=== PATIENT | female | born 2000 | race Caucasian/White ===

== ENCOUNTER 2020-02-22 11:53 | Outpatient (REF) | payer OTHER, SELFPAY | END 2020-02-22 11:54 | disposition home or self-care (01) | LOC: HO.LAB 11:53 | PROVIDERS: Visit Provider Internal Medicine | DX: Z20.822 Contact with and (suspected) exposure to COVID-19 (principal) | CPT/HCPCS: 36415; C9803; U0003 ==

== ENCOUNTER 2020-03-20 16:51 | Outpatient (REF) | payer OTHER, SELFPAY | END 2020-03-20 16:52 | disposition home or self-care (01) | LOC: HO.LAB 16:51 | PROVIDERS: Visit Provider Internal Medicine | DX: Z20.822 Contact with and (suspected) exposure to COVID-19 (principal) | CPT/HCPCS: 36415; C9803; U0003; U0005 ==

== ENCOUNTER 2021-01-16 16:05 | Outpatient (REF) | payer OTHER, SELFPAY | END 2021-01-16 16:06 | disposition home or self-care (01) | LOC: HO.LAB 16:05 | PROVIDERS: Visit Provider Internal Medicine | DX: Z20.822 Contact with and (suspected) exposure to COVID-19 (principal) | CPT/HCPCS: C9803; U0003; U0005 ==

== ENCOUNTER 2021-03-26 18:09 | Emergency (ER) | payer OTHER, SELFPAY ==
--- NOTE | ~2021-03-26 | US_ITS ---
EXAMINATION: US OBSTETRICAL ULTRASOUND CLINICAL INFORMATION: Lower/suprapubic abdominal pain. COMPARISON: None. LMP: 02/14/2021. Gestational age by maternal dates is 5 weeks and 5 days. Estimated date of delivery by maternal dates is 11/21/2021. TECHNIQUE: Ultrasound of the maternal pelvis is performed using transabdominal and transvaginal transducers. Transvaginal imaging is performed due to inadequate visualization transabdominally. M-mode Doppler is also performed. FINDINGS: The uterus measures 8.3 x 4.1 x 5.4 cm. The endometrium measures up to 1.1 cm in thickness. There is an endometrial sac measuring 0.4 cm which likely represents a gestational sac given provided history and corresponds to a sonographic gestational age of 4 weeks and 6 days. No pole is identified at this moment. No subchorionic bleed. The cervical os is closed. The cervical length was not measured by the technologist. The right ovary was not identified. The left ovary measures 4.3 x 3.4 x 4.4 cm and demonstrates a 2.6 cm peripheral hyperemic corpus luteal cyst. There is a small amount of free fluid. US/US OB <= 14 weeks fetus IMPRESSION: There is a very small anechoic endometrial sac, likely representing a small gestational sac measuring 0.4 cm and corresponding to a sonographic age of 4 weeks and 6 days. No pole is identified at this time and there is significant discrepancy in between the calculated gestational age by sonogram versus the calculated gestational age by last menstrual period which is 5 weeks and 5 days. Recommend correlation with certainty of the dates of the last menstrual period, quantitative hCGs and if indicated INFORMATION RECEPTIONIST consult to ensure viability of the . Inseparable from the left ovary, there is a peripheral hyperemic lesion, likely a corpus luteal cyst and much less likely an ectopic as this is within the left ovary and not from it. As above, quantitative hCG and close monitoring is recommended. The right ovary was not visualized Small volume of free fluid is nonspecific.
[2021-03-26 18:42] VITALS: BP 116/70; PULSE 68; RESP 18; TEMP 37.1; O2SAT 98; BMI 32.8
--- NOTE | 2021-03-26 19:07 | PC.NURSE ---
PT AMB TO [facility] WITH STEADY GAIT. C/O LLQ PELVIC PAIN. + . NO BLEEDING OR DISCHARGE. NO N/V/D. CHANGING INTO [facility].
[2021-03-26 19:14] VITALS: BP 109/66; PULSE 64; RESP 16; TEMP 37.2; O2SAT 99
--- NOTE | 2021-03-26 19:47 | ED_ITS ---
HPI - General Adult General Chief complaint: General Medical Stated complaint: left sided abd pain newly Time Seen by Provider: 03/26/21 18:58 Source: patient Mode of arrival: ambulatory History of Present Illness HPI narrative: 20-year-old female LMP beginning of February, presenting to the ED complaining suprapubic > left abdominal pain since this morning. Admits found out she was 2 days ago. Denies nausea, vomiting, diarrhea/constipation, dysuria/hematuria, flank pain, vaginal bleeding, vaginal discharge Onset (ago): day(s) Related Data Allergies Allergy/AdvReac Type Severity Reaction Status Date / Time No Known Allergies Allergy Unverified 03/26/21 18:42 Review of Systems Review of Systems: Constitutional: No Fever, No Chills, No Fatigue, No Malaise ENT/Mouth: No Ear Pain, No Nasal Congestion, No sore throat, No Rhinorrhea, No Swallowing Difficulty Eyes: No Eye Pain, No Swelling, No Redness, No Discharge Cardiovascular: No Chest Pain, No SOB, No Palpitations Respiratory: No Cough, No Sputum, No Dyspnea Gastrointestinal: No Nausea, No Vomiting, No Diarrhea, No Constipation, + Abdominal pain Genitourinary: No irregular bleeding, No vaginal discharge, No Dysuria, No Urinary Frequency, No Hematuria, No Flank Pain, No Urinary Flow Changes Musculoskeletal: No joint pain, No Myalgias, No Joint Swelling Skin: No Skin Lesions, No rash Neuro: No Weakness, No Dizziness, No Headache Yes all other systems are reviewed and are negative [facility] Past Medical History Attestation statement: The following information was validated with the patient. Medical History No known health problems Social History Social History Advance Directives: No Advance Directives Information Provided: Yes Patient : Yes Physical Exam ED Vital Signs: Vital Signs - 24 hr 03/26/21 18:42 03/26/21 19:14 03/26/21 21:46 Temperature 98.8 F 98.9 F 99.0 F Pulse Rate 68 64 62 Respiratory Rate 18 16 16 Blood Pressure 116/70 109/66 122/74 Pulse Oximetry 98 99 100 BMI result Body Mass Index 32.8 Const General: cooperative, healthy appearing and no acute distress Orientation/consciousness: patient oriented x3 Limitations: no limitations HENMT Head: Yes normal to inspection Ears: hearing grossly normal bilaterally General nose exam: Normal external nose present Face and sinus: Yes normal facial exam Eyes General: appearance normal, both eyes and all related structures EOM: EOMs intact bilaterally Neck Neck: Yes normal visual inspection and Yes no meningeal signs Resp Effort & Inspection: normal respiratory effort and no respiratory distress Cardio Rate: regular rate Heart sounds: S1 normal heart sound present and S2 normal heart sound present GI Inspection: Yes normal to inspection Palpation (GI): Soft to palpation, Tenderness to palpation present (GI) suprapubicly (bilaterally), no guarding and not rigid General: Yes no CVA tenderness Back/Spine/Pelvis Back: no CVA tenderness Skin Rashes: no rashes Wounds: no wounds Neuro General: patient oriented x3, gait normal, tone normal and no meningeal signs Gait exam (Neuro): Normal gait present Extrem General: Yes normal to inspection Course Course Course Narrative: -2132-- no leukocytosis. AST/ALT mildly elevated. Labs otherwise unremarkable. Beta quant 158 -2223--UA negative. positive US OB <= 14 weeks fetus IMPRESSION: There is a very small anechoic endometrial sac, likely representing a small gestational sac measuring 0.4 cm and corresponding to a sonographic age of 4 weeks and 6 days. No pole is identified at this time and there is significant discrepancy in between the calculated gestational age by sonogram versus the calculated gestational age by last menstrual period which is 5 weeks and 5 days. ? Recommend correlation with certainty of the dates of the last menstrual period, quantitative hCGs and if indicated BORDER MEASURER AND CUTTER consult to ensure viability of the . ? Inseparable from the left ovary, there is a peripheral hyperemic lesion, likely a corpus luteal cyst and much less likely an ectopic as this is within the left ovary and not from it. As above, quantitative hCG and close monitoring is recommended. ? The right ovary was not visualized ? Small volume of free fluid is nonspecific. >> results discussed with patient including needed close follow-up with OBGYN and repeat hCG in 48 hours. Discussed with patient its possible this is an ectopic , discussed worrisome signs and symptoms/strict return precautions including increasing/worsening or persistent pain, vaginal bleeding or discharge, persistent nausea or vomiting/fever to return to the ED immediately, she verbalized understanding and feel safe for discharge home at this time Medical Decision Making MDM Narrative Medical decision making narrative: 20-year-old female LMP beginning of February, presenting to the ED complaining suprapubic > left abdominal pain since this morning. On exam vital signs stable, NAD/nontoxic, abdomen soft with suprapubic tenderness, no rebound or guarding, no CVAT. Concern for vs ectopic vs ovarian cyst vs ?UTI. Lower concern for appendicitis/diverticulitis or ovarian torsion Plan: Labs, UA, OB US, Re-evaluate Medical Records Medical records reviewed: Yes I reviewed the patient's medical records. Lab Data Lab results reviewed: Yes I reviewed the patient's lab results. Result diagrams: 03/26/21 20:13 03/26/21 20:13 Labs: Lab Results 03/26/21 03/26/21 03/26/21 Range/Units 19:41 19:41 20:13 WBC (4.8-10.8) X10*3/uL RBC (4.20-5.50) X10*6/uL Hgb (12.0-16.0) g/dl Hct (37.0-47.0) % MCV (80.0-98.0) fL MCH (27.0-33.0) pg MCHC (31.0-35.0) g/dl RDW (11.0-16.0) % Plt Count (160-400) X10*3/uL MPV (9.4-12.3) fL Immature Gran % (Auto) (0.0-0.4) % Neut % (Auto) (45-73) % Lymph % (Auto) (20-40) % [place] % (Auto) (2-11) % Eos % (Auto) (0-4) % Baso % (Auto) (0-2) % Lymph # (Auto) (1.2-4.9) X10*3/uL [place] # (Auto) (0.1-1.2) X10*3/uL Eos # (Auto) (0.0-0.4) X10*3/uL Baso # (Auto) (0.0-0.2) X10*3/uL Abs Immat Gran (auto) (0.00-0.03) X10*3/uL Absolute Neuts (auto) (2.0-8.3) x10*3/uL Absolute Nucleated RBC (0.0-0.012) X10*3/uL Nucleated RBC % (auto) (0.0-0.2) /100WBC Sodium 136 (135-145) mmol/L Potassium 4.3 (3.3-5.1) mmol/L Chloride 106 (96-108) mmol/L Carbon Dioxide 21 L (22-29) mmol/L Anion Gap 13 (12-20) BUN 10 (9-16) mg/dL Creatinine 0.66 (0.5-1.4) mg/dL Estim Creat Clear Calc 137.2 Estimated GFR > 60 Random Glucose 79 (60-115) mg/dL Calcium 9.7 (8.4-10.2) mg/dL Magnesium 1.8 (1.6-2.6) mg/dL Total Bilirubin 0.3 (0.0-1.0) mg/dL Direct Bilirubin 0.2 (0.0-0.5) mg/dL AST 59 H (5-31) U/L ALT 68 H (0-31) U/L Alkaline Phosphatase 64 (39-117) U/L Total Protein 8.2 H (6.5-8.0) g/dL Albumin 4.3 (3.5-5.0) g/dL Lipase 18 (8-78) U/L Beta HCG, Quant 158 mIU/mL Urine Color YELLOW Urine Appearance CLEAR Urine pH 5.5 (5.0-8.0) Ur Specific [place] 1.020 (1.005-1.025) Urine Protein NEG (NEG-TRACE) MG/DL Urine Glucose (UA) NEG (NEG) MG/DL Urine Ketones NEG (NEG) MG/DL Urine Blood NEG (NEG) Urine Nitrite NEG (NEG) Ur Leukocyte Esterase NEG (NEG) Urine Test POSITIVE H (NEGATIVE) 03/26/21 Range/Units 20:13 WBC 6.8 (4.8-10.8) X10*3/uL RBC 4.74 (4.20-5.50) X10*6/uL Hgb 13.3 (12.0-16.0) g/dl Hct 39.1 (37.0-47.0) % MCV 82.5 (80.0-98.0) fL MCH 28.1 (27.0-33.0) pg MCHC 34.0 (31.0-35.0) g/dl RDW 12.6 (11.0-16.0) % Plt Count 290 (160-400) X10*3/uL MPV 9.5 (9.4-12.3) fL Immature Gran % (Auto) 0.1 (0.0-0.4) % Neut % (Auto) 57.4 (45-73) % Lymph % (Auto) 29.2 (20-40) % [place] % (Auto) 10.2 (2-11) % Eos % (Auto) 2.5 (0-4) % Baso % (Auto) 0.6 (0-2) % Lymph # (Auto) 2.0 (1.2-4.9) X10*3/uL [place] # (Auto) 0.7 (0.1-1.2) X10*3/uL Eos # (Auto) 0.2 (0.0-0.4) X10*3/uL Baso # (Auto) 0.0 (0.0-0.2) X10*3/uL Abs Immat Gran (auto) 0.01 (0.00-0.03) X10*3/uL Absolute Neuts (auto) 3.9 (2.0-8.3) x10*3/uL Absolute Nucleated RBC 0.000 (0.0-0.012) X10*3/uL Nucleated RBC % (auto) 0.0 (0.0-0.2) /100WBC Sodium (135-145) mmol/L Potassium (3.3-5.1) mmol/L Chloride (96-108) mmol/L Carbon Dioxide (22-29) mmol/L Anion Gap (12-20) BUN (9-16) mg/dL Creatinine (0.5-1.4) mg/dL Estim Creat Clear Calc Estimated GFR Random Glucose (60-115) mg/dL Calcium (8.4-10.2) mg/dL Magnesium (1.6-2.6) mg/dL Total Bilirubin (0.0-1.0) mg/dL Direct Bilirubin (0.0-0.5) mg/dL AST (5-31) U/L ALT (0-31) U/L Alkaline Phosphatase (39-117) U/L Total Protein (6.5-8.0) g/dL Albumin (3.5-5.0) g/dL Lipase (8-78) U/L Beta HCG, Quant mIU/mL Urine Color Urine Appearance Urine pH (5.0-8.0) Ur Specific [place] (1.005-1.025) Urine Protein (NEG-TRACE) MG/DL Urine Glucose (UA) (NEG) MG/DL Urine Ketones (NEG) MG/DL Urine Blood (NEG) Urine Nitrite (NEG) Ur Leukocyte Esterase (NEG) Urine Test (NEGATIVE) Discharge Plan Discharge Clinical Impression: Abdominal pain during in first trimester Patient Disposition: Home, Self-Care Instructions: Abdominal Pain in (ED) Additional Instructions: Your liver enzymes were mildly elevated. Your level is 158 consistent with 4-5 weeks gestation Your ultrasound shows beginning of a normal at 4 weeks 6 days, however there is discrepancy between your last menstrual period. Youre very early, this could still be an ectopic , you need repeat blood work in 48 hours. You need to follow-up with her OBGYN very closely. You also need repeat ultrasound in 1-2 weeks. If her symptoms persist or worsen, you developed nausea/vomiting, vaginal bleeding or discharge please return to the emergency department immediately Ultrasound also shows a left ovarian cyst. Referrals: Andrzej Bailey MD [Physician] - 2 days (For repeat blood test and follow-up) Discharge Date/Time: 03/26/21 22:27
[2021-03-26 19:50] LABS: UPreg QC Valid YES; Urine Pregnancy POSITIVE (NEGATIVE)
[2021-03-26 20:20] LABS: MANUAL DIFF FLAG NO
[2021-03-26 20:25] LABS: Basophils Percent Auto 0.6 % (0-2); Eosinophils Absolute Auto 0.2 X10*3/uL (0.0-0.4); Eosinophils Percent Auto 2.5 % (0-4); Hematocrit 39.1 % (37.0-47.0); Hemoglobin 13.3 g/dl (12.0-16.0); Imm Gran Abs Auto 0.01 X10*3/uL (0.00-0.03); Imm Gran Pct Auto 0.1 % (0.0-0.4); Lymphocytes Percent Auto 29.2 % (20-40); Mean Corpuscular Hemoglobin 28.1 pg (27.0-33.0); Mean Corpuscular Volume 82.5 fL (80.0-98.0); Mean Platelet Volume 9.5 fL (9.4-12.3); Monocytes Absolute Auto 0.7 X10*3/uL (0.1-1.2); Monocytes Percent Auto 10.2 % (2-11); Neutrophils Absolute Auto 3.9 x10*3/uL (2.0-8.3); Neutrophils Percent Auto 57.4 % (45-73); Platelet Count 290 X10*3/uL (160-400); Red Blood Count 4.74 X10*6/uL (4.20-5.50); Red Cell Distribution Width 12.6 % (11.0-16.0); White Blood Count 6.8 X10*3/uL (4.8-10.8)
[2021-03-26 20:39] LABS: Alanine Aminotransferase 68 U/L (0-31); Albumin Level 4.3 g/dL (3.5-5.0); Alkaline Phosphatase 64 U/L (39-117); Anion Gap 13 (12-20); Aspartate Amino Transferase 59 U/L (5-31); Bilirubin Direct 0.2 mg/dL (0.0-0.5); Bilirubin Total 0.3 mg/dL (0.0-1.0); Blood Urea Nitrogen 10 mg/dL (9-16); Calcium 9.7 mg/dL (8.4-10.2); Carbon Dioxide 21 mmol/L (22-29); Chloride 106 mmol/L (96-108); Creatinine Clr Calc Pharmacy 137.2; Estimated Glomerular Filt Rate > 60; Glucose Random 79 mg/dL (60-115); Lipase 18 U/L (8-78); Magnesium 1.8 mg/dL (1.6-2.6); Potassium 4.3 mmol/L (3.3-5.1); Sodium 136 mmol/L (135-145); Total Protein 8.2 g/dL (6.5-8.0)
[2021-03-26 20:45] LABS: HCG Quantitative 158 mIU/mL
[2021-03-26 21:44] LABS: Appearance Urine CLEAR; Color Urine YELLOW; Glucose Urine UA NEG (NEG); Leukocyte Esterase Urine NEG (NEG); Nitrite Urine NEG (NEG); PH 5.5 (5.0-8.0); Urine Blood NEG (NEG); Urine Ketones NEG (NEG); Urine Protein NEG (NEG-TRACE)
[2021-03-26 21:46] VITALS: BP 122/74; PULSE 62; RESP 16; TEMP 37.2; O2SAT 100
== END 2021-03-26 22:27 | disposition home or self-care (01) ==
PROVIDERS: Physician Assistant; Emergency Provider Internal Medicine; PCP Internal Medicine
DX: O26.891 Other specified pregnancy related conditions, first trimester (principal); R10.9 Unspecified abdominal pain; Z3A.01 Less than 8 weeks gestation of pregnancy
CPT/HCPCS: 36415; 76801; 80048; 80076; 81003; 81025; 83690; 83735; 84702; 85025; 99284

== ENCOUNTER 2021-03-28 10:00 | Outpatient (REF) | payer OTHER, SELFPAY ==
[2021-03-28 11:18] LABS: HCG Quantitative 257 mIU/mL
== END 2021-03-28 10:01 | disposition home or self-care (01) ==
LOC: HO.LAB 10:00
PROVIDERS: Absent Provider Obstetrics & Gynecology; Visit Provider Physician Assistant
DX: Z34.90 Encounter for supervision of normal pregnancy, unspecified, unspecified trimester (principal)
CPT/HCPCS: 36415; 84702

== ENCOUNTER 2023-10-13 15:37 | Outpatient (AMB) | payer OTHER, SELFPAY ==
[2023-10-13 15:42] VITALS: BP 102/60; PULSE 53; O2SAT 98; BMI 32.2
--- NOTE | 2023-10-13 15:42 | MHC.PC.OV ---
Vital Signs 10/13/23 15:42 Height 5 ft 3 in Weight 182 lb 0.1 oz BMI 32.2 BP 102/60 Blood Pressure Location Lt brachial Position Sitting Pulse 53 Pulse Source Pulse Oximeter Pulse Oximetry (%) 98 Oxygen Delivery Method Room Air Intake Visit Reasons: annual exam/ establish care Intake Note: Patient is here today for a physical. Keel Press Operator Required: No Allergies No Known Allergies Allergy (Verified 10/13/23 15:57) Medication List - Last Reconciled 10/13/23 by Katarina Malhotra PA-C levonorgestrel-ethinyl estrad 0.1-20 mg-mcg (Sronyx) 1 tab PO DAILY Tobacco use date assessed: 10/13/23 Dental Screening Dental Screen Date: 10/13/23 Did you have a dental visit in the last 12 months?: Yes Did you have a dental problem in the last 6 months where you did not have access to dental care?: No Was dental information given to patient?: Patient has dentist HPI annual exam/ establish care HPI Details 23-year-old female coming to the office for the 1st time. Today she tells us she does have concern about weight gain and would like to lose weight. She does an inconsistent tight sometimes overeating and sometimes not eating at all. She also mentions having occasional hair loss and has a family history of alopecia. [facility] Medical History (Updated 10/13/23 @ 16:12 by Katarina Malhotra PA-C) delivery delivered No known health problems Surgical History (Updated 10/13/23 @ 15:58 by Katarina Malhotra PA-C) Hx of breast reduction, elective Family History (Updated 10/13/23 @ 15:58 by Katarina Malhotra PA-C) Maternal Grandfather Cancer Social History Housing: Apartment Patient Tobacco Use Status: Never used Tobacco service: No Current occupational status: employed Cognitive needs: No Hearing needs: No Vision needs: No Female Reproductive History Menstrual control method: pills Total pregnancies: 2 Full term: 1 Ab induced: 1 History of abnormal pap smear: No Questionnaire PHQ-9 Over the last 2 weeks, how often have you been bothered by any of the following problems? 1. Little interest or pleasure in doing things: not at all 2. Feeling down, depressed, or hopeless: not at all 3. Trouble falling or staying asleep, or sleeping too much: not at all 4. Feeling tired or having little energy: not at all 5. Poor appetite or overeating: nearly every day 6. Feeling bad about yourself - or that you are a failure or have let yourself or your family down: not at all 7. Trouble concentrating on things, such as reading the newspaper or watching television: not at all 8. Moving or speaking so slowly that other people could have noticed. Or the opposite - being so fidgety or restless that you have been moving around a lot more than usual: not at all 9. Thoughts that you would be better off or of hurting yourself in some way: not at all Total score: 3 Depression Screening Interpretation: Negative Depression Screening Done: Yes 93585 - PHQ-9 Billing: Yes Source: Developed by Drs. Delroy Lopez, Kelly Espinosa, Usman Ramirez and colleagues, with an educational sara from [employer]. Thrive Questionnaire Date Thrive assessed: 10/13/23 I am a: Patient What is your living situation today?: I have a steady place to live Within the past 12 months, did the food you bought not last and you didn't have the money to get more?: Never true Within the past 12 months, did you worry whether your food would run out before you got money to buy more?: Never true Do you have trouble paying for medicines?: No Do you have trouble getting transportation to medical appointments?: No Do you have trouble paying your heating and electricity bill?: No Do you have trouble taking care of your child, family member or friend?: No Do you have trouble with day-to-day activities such as bathing, preparing meals, shopping, managing finances, etc.?: No Are you currently unemployed and looking for a job?: No Are you interested in more education?: No Please select the resources that you would like help with: None Currently or been in a relationship where the following occur: No concerns reported THRIVE Score: 0 AUDIT C Alcohol Use Questionnaire (AUDIT-C) 1. How often do you have a drink containing alcohol?: 2-4 times a month 2. How many drinks containing alcohol do you have on a typical day when you are drinking?: 3 or 4 3. How often do you have six or more drinks on one occasion?: Less than monthly Total Score: 4 JAYDON-7 AMB Questionnaire JAYDON-7 Date JAYDON - 7 assessed: 10/13/23 Feeling nervous, anxious, or on edge: 0 = Not at all Not being able to stop or control worryin = Not at all Worrying too much about different things: 0 = Not at all Trouble relaxin = Not at all Being so restless that it is hard to sit still: 0 = Not at all Becoming easily annoyed or irritable: 0 = Not at all Feeling afraid as if something awful might happen: 0 = Not at all Total JAYDON-7 score (0-4 normal; 5-9 mild; 10-14 moderate; 15-21 severe): 0 Source: Developed by Drs. Delroy Lopez, Kelly Espinosa, Usman Ramirez and colleagues, with an educational sara from [employer]. JAYDON-7 Assessment Billing JAYDON-7 Assessment Tool: JAYDON-7 Assessment 25996 Review of Systems Const Denies body aches, Denies fatigue, Denies fever(s), Denies frequent falls, Denies headache(s) and Denies weakness Eyes Reports no additional complaints, Denies change in vision and Reports requires corrective lenses ENT Denies dysphagia, Denies dizziness, Denies facial pain, Denies headache(s), Denies nasal congestion and Denies odynophagia Card Denies chest pain, Denies syncope, Denies irregular heart rhythm, Denies leg edema, Denies lightheadedness and Denies dyspnea Resp Denies cough and Denies dyspnea GI Reports constipation, Denies dysphagia, Denies dyspepsia, Denies diarrhea, Denies nausea, Denies odynophagia and Denies vomiting Denies urinary frequency, Denies dysuria, Denies urinary hesitancy and Denies urinary urgency Musc Denies back pain and Denies myalgias Skin/Breast Reports as per HPI Neuro Denies dizziness, Denies syncope, Denies frequent falls, Denies headache(s) and Denies weakness Psych Reports no additional complaints Endo Denies fatigue Physical exam (Primary Care) Vital Signs: Last Vital Signs Pulse 53 10/13/23 15:42 BP 102/60 10/13/23 15:42 Pulse Ox 98 10/13/23 15:42 Oxygen Delivery Method Room Air 10/13/23 15:42 BMI result Body Mass Index 32.2 Tobacco/Smoking Status: Tobacco use Status Tobacco use date assessed 10/13/23 10/13/23 15:43 Patient Tobacco Use Status Never used Tobacco 10/13/23 15:43 PHQ-9: PHQ-9 Score PHQ-9: Total score 3 10/13/23 15:56 Depression Screening Interpretation: Negative Thrive Assessment: Date of Thrive Assessment Date Thrive assessed 10/13/23 10/13/23 15:43 Currently or been in a relationship where the following occur: No concerns reported Const General: cooperative, healthy appearing, comfortable and no acute distress Orientation/consciousness: patient oriented x3 HENMT Head: Yes normocephalic Ears: hearing grossly normal bilaterally, external ears normal, TM's normal bilaterally and EAC's normal General nose exam: Normal external nose present Face and sinus: Yes normal facial exam and Yes sinuses nontender Mouth: Normal oral and palatal mucosa present and tongue normal Throat: Yes posterior oropharynx normal Eyes General: appearance normal, both eyes and all related structures Conjunctivae: conjunctivae normal Pupils: Equal, round and reactive pupils present EOM: EOMs intact bilaterally and No Nystagmus present Neck Neck: Yes normal visual inspection, Yes full ROM and Yes no lymphadenopathy Chest Chest palpation & inspection: normal inspection of the chest Resp Effort & Inspection: normal respiratory effort Auscultation: clear to auscultation bilaterally, no crackles, no rales, no rhonchi, no wheezes and breath sounds present Cardio Rate: regular rate Rhythm: regular rhythm Peripheral pulses: radial pulses present and dorsalis pedis present GI Inspection: Yes normal to inspection and No Abdominal wall edema Palpation (GI): Soft to palpation, not firm and nontender Auscultation: normal bowel sounds Rectal Exam - Female: deferred General: Yes no CVA tenderness Back/Spine/Pelvis Back: no CVA tenderness Skin General skin exam: no rashes or lesions noted Neuro General: patient oriented x3 Cranial nerves: Yes Equal, round and reactive pupils present, Yes Midline tongue present, Yes Ability to bilaterally elevate shoulders present and No Nystagmus present Gait exam (Neuro): Normal gait present Extrem General: Yes normal to inspection, Yes full ROM, No no pedal edema and No edema Psych Speech and movement: Normal speech and movement present Affect: normal affect Insight: Good insight present (Psych) Judgement: Good judgement present (Psych) Assessment and Plan Assessment & Plan (1) Obesity: Code(s): E66.9 - Obesity, unspecified Plan: Encouraged healthy diet and regular exercise. Referral to weight management clinic placed today. (2) Hair loss: Code(s): L65.9 - Nonscarring hair loss, unspecified Plan: Patient does endorse mild hair loss. Advised patient she can trial [id number] hair skin and nails gummies. Did order for blood work to for underlying cause and referral to Dermatology placed. (3) Annual physical exam: Code(s): Z00.00 - Encounter for general adult medical examination without abnormal findings Plan: Patient is up-to-date routine screenings vaccinations for her age. Ordered for updated blood work and we will follow up in 1 year or sooner if new problems arise. Plan This note was constructed using voice recognition software. While every effort has been made to ensure accuracy and polisher aluminum, still areas may have been included sometimes these areas may affect the content or meeting of the given symptoms. Total time spent caring for the patient today was 25 minutes. This includes time spent before the visit reviewing the chart, time spent during the visit, and time spent after the visit and documentation. Orders: Orders Free T4 (Free Thyroxine) Today Z00.00 - Encounter for general adult medical examination without abnormal findings TSH reflex Free T4 Today Z00.00 - Encounter for general adult medical examination without abnormal findings Vitamin D 25-OH (D2 and D3) Today Z00.00 - Encounter for general adult medical examination without abnormal findings Complete Blood Count Auto Diff Today Z00.00 - Encounter for general adult medical examination without abnormal findings Comprehensive Met. Panel Today Z00.00 - Encounter for general adult medical examination without abnormal findings Vitamin B12 and Folate Today Z00.00 - Encounter for general adult medical examination without abnormal findings IRON PROFILE Today Z00.00 - Encounter for general adult medical examination without abnormal findings Referrals Medical Weight Management Referral E66.9 - Obesity, unspecified Dermatology Referral Z00.00 - Encounter for general adult medical examination without abnormal findings Coding Level of Care Code Est Pt Prev Care 18-39y([id number]) Diagnoses Obesity E66.9 Hair loss L65.9 Annual physical exam Z00.00 Additional Codes JAYDON-7 Assessment Billing - JAYDON-7 Assessment Tool: JAYDON-7 Assessment 66869 ([id number])
== END 2023-10-13 16:14 | disposition home or self-care (01) ==
DX: Z00.00 Encounter for general adult medical examination without abnormal findings (principal); E66.9 Obesity, unspecified; L65.9 Nonscarring hair loss, unspecified; Z68.32 Body mass index [BMI] 32.0-32.9, adult
CPT/HCPCS: 99395

== ENCOUNTER 2023-10-13 16:26 | Outpatient (REF) | payer OTHER, SELFPAY ==
[2023-10-13 16:43] LABS: MANUAL DIFF FLAG NO
[2023-10-13 17:32] LABS: Basophils Absolute Auto 0.1 X10*3/uL (0.0-0.2); Eosinophils Absolute Auto 0.1 X10*3/uL (0.0-0.4); Eosinophils Percent Auto 1.9 % (0-4); Hematocrit 41.1 % (37.0-47.0); Hemoglobin 13.9 g/dl (12.0-16.0); Imm Gran Abs Auto 0.01 X10*3/uL (0.00-0.03); Imm Gran Pct Auto 0.1 % (0.0-0.4); Lymphocytes Absolute Auto 1.7 X10*3/uL (1.2-4.9); Lymphocytes Percent Auto 23.8 % (20-40); Mean Corpuscular HGB Conc 33.8 g/dl (31.0-35.0); Mean Corpuscular Hemoglobin 28.3 pg (27.0-33.0); Mean Corpuscular Volume 83.7 fL (80.0-98.0); Monocytes Absolute Auto 0.5 X10*3/uL (0.1-1.2); Monocytes Percent Auto 6.4 % (2-11); Neutrophils Absolute Auto 4.7 x10*3/uL (2.0-8.3); Neutrophils Percent Auto 66.8 % (45-73); Platelet Count 325 X10*3/uL (160-400); Red Blood Count 4.91 X10*6/uL (4.20-5.50); Red Cell Distribution Width 12.5 % (11.0-16.0)
[2023-10-13 17:53] LABS: Alanine Aminotransferase 29 U/L (0-31); Albumin Level 4.5 g/dL (3.5-5.0); Alkaline Phosphatase 50 U/L (39-117); Anion Gap 12 (12-20); Aspartate Amino Transferase 26 U/L (5-31); Bilirubin Total 0.5 mg/dL (0.0-1.0); Blood Urea Nitrogen 9 mg/dL (9-16); Calcium 10.1 mg/dL (8.4-10.2); Carbon Dioxide 23 mmol/L (22-29); Chloride 108 mmol/L (96-108); Estimated Glomerular Filt Rate > 60; Glucose Random 76 mg/dL (60-115); Iron 83 mcg/dL (30-160); Percent Iron Saturation 22 % (15-50); Potassium 3.9 mmol/L (3.3-5.1); Sodium 139 mmol/L (135-145); Total Iron Binding Capacity 372 mcg/dL (228-428); Total Protein 8.7 g/dL (6.5-8.0); Unsaturated Iron Binding 289 ug/dL
[2023-10-13 18:09] LABS: Free T4 (Free Thyroxine) 0.88 ng/dL (0.71-1.85); TSH reflex Free T4 1.61 uIU/mL (0.32-4.0)
[2023-10-13 18:17] LABS: Vitamin B12 513 pg/mL (200-900)
[2023-10-18 16:03] LABS: Vitamin D 25-OH, D2 <4 ng/mL; Vitamin D 25-OH, D3 26 ng/mL; Vitamin D 25-OH, Total 26 ng/mL (30-100)
== END 2023-10-13 16:27 | disposition home or self-care (01) ==
LOC: HO.LAB 16:26
DX: Z00.00 Encounter for general adult medical examination without abnormal findings (principal)
CPT/HCPCS: 36415; 80053; 82306; 82607; 82746; 83540; 84439; 84443; 85025

== ENCOUNTER 2024-12-15 15:21 | Outpatient (AMB) | payer OTHER, SELFPAY ==
--- NOTE | 2024-12-15 15:34 | MHC.PC.OV ---
Vital Signs 12/15/24 15:37 Height 5 ft 3 in Weight 146 lb BMI 25.9 BP 100/88 Blood Pressure Location Lt brachial Position Sitting Pulse 73 Pulse Source Pulse Oximeter Temp 97.3 F Temp Source Temporal Artery Scan Pulse Oximetry (%) 99 Oxygen Delivery Method Room Air Intake Visit Reasons: Annual physical Intake Note: Patient is here today for a physical. Electronic Coils Supervisor Required: No Allergies No Known Allergies Allergy (Verified 12/15/24 15:49) Medication List - Last Reconciled 12/15/24 by Katarina Malhotra PA-C levonorgestrel-ethinyl estrad 0.1-20 mg-mcg (Sronyx) 1 tab PO DAILY Tobacco use date assessed: 12/15/24 Dental Screening Dental Screen Date: 12/15/24 Did you have a dental visit in the last 12 months?: No Did you have a dental problem in the last 6 months where you did not have access to dental care?: No Was dental information given to patient?: Patient has dentist HPI Annual physical HPI Details 24 year old female with no relevant past medical history last seen 12/2023 coming in for annual exam. Presenting for contraception management and evaluation of recent hives. The patient is requesting to restart control after her previous provider stopped prescribing it due to insurance issues. She expresses significant concern about weight gain as a side effect, as she has recently lost approximately 40 pounds and is terrified of regressing. She has a history of using oral contraceptive pills and reports a good experience with Junel but a poor experience with Sronyx, which caused breakouts and heavier periods. She also reports non-malodorous white vaginal discharge and has a history of BV, though she is unsure if her current symptoms are consistent with it. Over the past one to two months, the patient has been experiencing intermittent episodes of itchy hives on her arms, thighs, back, and chest. The hives last for a couple of days, and she has been taking Zyrtec for relief. pap smear: referral placed today vaccines: VAD [facility] Medical History delivery delivered No known health problems Surgical History Hx of breast reduction, elective Family History Maternal Grandfather Cancer Social History Housing: Apartment Patient Tobacco Use Status: Never used Tobacco Tobacco use type: Cigarette e-Cigarette/Vaping Use: Never Used Second Hand Smoke Exposure: No service: No Current occupational status: employed Cognitive needs: No Hearing needs: No Vision needs: No Questionnaire PHQ-9 Over the last 2 weeks, how often have you been bothered by any of the following problems? 1. Little interest or pleasure in doing things: not at all 2. Feeling down, depressed, or hopeless: not at all 3. Trouble falling or staying asleep, or sleeping too much: not at all 4. Feeling tired or having little energy: not at all 5. Poor appetite or overeating: not at all 6. Feeling bad about yourself - or that you are a failure or have let yourself or your family down: not at all 7. Trouble concentrating on things, such as reading the newspaper or watching television: not at all 8. Moving or speaking so slowly that other people could have noticed. Or the opposite - being so fidgety or restless that you have been moving around a lot more than usual: not at all 9. Thoughts that you would be better off or of hurting yourself in some way: not at all Total score: 0 Depression Screening Interpretation: Negative Depression Screening Done: Yes Source: Developed by Drs. Delroy Lopez, Kelly Espinosa, Usman Ramirez and colleagues, with an educational sara from [employer]. Thrive Questionnaire Date Thrive assessed: 12/15/24 I am a: Patient What is your living situation today?: I have a steady place to live Within the past 12 months, did the food you bought not last and you didn't have the money to get more?: Never true Within the past 12 months, did you worry whether your food would run out before you got money to buy more?: Never true Do you have trouble paying for medicines?: No Do you have trouble getting transportation to medical appointments?: No Do you have trouble paying your heating and electricity bill?: No Do you have trouble taking care of your child, family member or friend?: No Do you have trouble with day-to-day activities such as bathing, preparing meals, shopping, managing finances, etc.?: No Are you currently unemployed and looking for a job?: No Are you interested in more education?: No Please select the resources that you would like help with: None Currently or been in a relationship where the following occur: No concerns reported THRIVE Score: 0 AUDIT C Alcohol Use Questionnaire (AUDIT-C) 1. How often do you have a drink containing alcohol?: 2-4 times a month 2. How many drinks containing alcohol do you have on a typical day when you are drinking?: 1 or 2 3. How often do you have six or more drinks on one occasion?: Less than monthly Total Score: 3 JAYDON-7 AMB Questionnaire JAYDON-7 Date JAYDON - 7 assessed: 12/15/24 Feeling nervous, anxious, or on edge: 0 = Not at all Not being able to stop or control worryin = Not at all Worrying too much about different things: 0 = Not at all Trouble relaxin = Not at all Being so restless that it is hard to sit still: 0 = Not at all Becoming easily annoyed or irritable: 0 = Not at all Feeling afraid as if something awful might happen: 0 = Not at all Total JAYDON-7 score (0-4 normal; 5-9 mild; 10-14 moderate; 15-21 severe): 0 Source: Developed by Drs. Delroy Lopez, Kelly Espinosa, Usman Ramirez and colleagues, with an educational sara from [employer]. Review of Systems Const Denies body aches, Denies chills, Denies fever(s), Denies headache(s) and Denies poor appetite Eyes Reports no additional complaints ENT Denies dysphagia, Denies dizziness, Denies headache(s) and Denies odynophagia Card Denies chest pain, Denies syncope, Denies edema, Denies irregular heart rhythm, Denies lightheadedness and Denies dyspnea Resp Denies cough and Denies dyspnea GI Denies abdominal pain, Denies constipation, Denies dysphagia, Denies diarrhea, Denies nausea, Denies odynophagia and Denies vomiting Details: vaginal discharge Reports no additional complaints Musc Reports no additional complaints and Denies abnormal gait Skin/Breast Reports system reviewed and no additional complaints, except as documented Neuro Denies abnormal gait, Denies dizziness, Denies syncope and Denies headache(s) Psych Reports no additional complaints Physical exam (Primary Care) Vital Signs: Last Vital Signs Temp 97.3 F 12/15/24 15:37 Pulse 73 12/15/24 15:37 BP 100/88 12/15/24 15:37 Pulse Ox 99 12/15/24 15:37 Oxygen Delivery Method Room Air 12/15/24 15:37 BMI result Body Mass Index 25.9 Tobacco/Smoking Status: Tobacco use Status Tobacco use date assessed 12/15/24 12/15/24 15:41 Patient Tobacco Use Status Never used Tobacco 12/15/24 15:41 Tobacco use type Cigarette 12/15/24 15:41 e-Cigarette/Vaping Use Never Used 12/15/24 15:41 PHQ-9: PHQ-9 Score PHQ-9: Total score 0 12/15/24 15:41 Depression Screening Interpretation: Negative Thrive Assessment: Date of Thrive Assessment Date Thrive assessed 12/15/24 12/15/24 15:41 Currently or been in a relationship where the following occur: No concerns reported Const General: cooperative, healthy appearing, comfortable and no acute distress Orientation/consciousness: patient oriented x3 HENMT Head: Yes normocephalic Ears: hearing grossly normal bilaterally General nose exam: Normal external nose present Eyes General: appearance normal, both eyes and all related structures Conjunctivae: conjunctivae normal Neck Neck: Yes full ROM and Yes no lymphadenopathy Resp Effort & Inspection: normal respiratory effort Auscultation: clear to auscultation bilaterally, no crackles, no rales, no rhonchi and no wheezes Cardio Rate: regular rate Rhythm: regular rhythm Skin General skin exam: no rashes or lesions noted Neuro General: patient oriented x3 Gait exam (Neuro): Normal gait present Extrem General: Yes normal to inspection, Yes full ROM and No edema Psych Affect: normal affect Attitude: cooperative Insight: Good insight present (Psych) Judgement: Good judgement present (Psych) Coding Level of Care Code Est Pt Prev Care 18-39y([id number]) Diagnoses Annual physical exam Z00.00 Obesity E66.9 Vaginal discharge N89.8 Hives L50.9 Encounter for counseling regarding contraception Z30. Assessment & Plan Assessment & Plan (1) Annual physical exam: Code(s): Z00.00 - Encounter for general adult medical examination without abnormal findings Category: Medical Plan: Patient is up to date on all recommended routine screening and vaccinations for her age. Healthy diet and regular exercise is encouraged. Ordered for updated blood work. Plan to follow up in 3 months or sooner as needed. (2) Obesity: Code(s): E66.9 - Obesity, unspecified Category: Medical Plan: Healthy diet and regular exercise is encouraged. Noted 40 lb intentional weight loss since last visit. (3) Vaginal discharge: Code(s): N89.8 - Other specified noninflammatory disorders of vagina Category: Medical Plan: Ordered for vaginosis swab and STI testing for further evaluation. (4) Hives: Code(s): L50.9 - Urticaria, unspecified Category: Medical Plan: The patient reports new onset of intermittent, itchy hives over the past one to two months. A referral to an food general manager will be placed for further evaluation. The patient was advised to keep a log of potential triggers, including foods, detergents, soaps, and lotions, and to take pictures of the rash when it occurs. She was counseled to switch to free and clear detergents and unscented soaps and lotions to rule out contact dermatitis. She can continue taking Zyrtec daily for preventative management of her symptoms. (5) Encounter for counseling regarding contraception: Code(s): Z30.09 - Encounter for other general counseling and advice on contraception Category: Medical Plan: The patient desires to restart contraception and prefers an oral contraceptive pill. She has significant concerns about weight gain after recently losing 40 pounds. Various options, including pills, injections (Depo-Provera), implant (Nexplanon), and IUDs were discussed, noting that Depo and Nexplanon have a higher association with weight gain. Given her past positive experience with Junel, a prescription for this medication will be sent to her pharmacy. She will undergo a urine test today and has been instructed to start the pill after her next menstrual cycle begins. A referral to gynecology will be placed for continued long-term management and routine care. A telephone follow-up is scheduled for three months to assess tolerance and side effects. Plan This note was constructed using voice recognition software. While every effort has been made to ensure accuracy and truckload owner operator, still areas may have been included sometimes these areas may affect the content or meeting of the given symptoms. Total time spent caring for the patient today was 30 minutes. This includes time spent before the visit reviewing the chart, time spent during the visit, and time spent after the visit and documentation. Patient was informed and verbally consented to the use of an ambient scribe for clinic note documentation during this visit. Orders: Orders CT NG by PCR Vag/Cerv Today Z00.00 - Encounter for general adult medical examination without abnormal findings Complete Blood Count Auto Diff Today L65.9 - Nonscarring hair loss, unspecified, Z13.0 - Encounter for screening for diseases of the blood and blood-forming organs and certain disorders involving the immune mechanism TSH reflex Free T4 Today L65.9 - Nonscarring hair loss, unspecified, Z13.29 - Encounter for screening for other suspected endocrine disorder Vitamin D 25-OH Total Today L65.9 - Nonscarring hair loss, unspecified, Z13.21 - Encounter for screening for nutritional disorder Bacterial Vaginosis Panel Today N89.8 - Other specified noninflammatory disorders of vagina Vitamin B12 and Folate Today L65.9 - Nonscarring hair loss, unspecified, Z13.21 - Encounter for screening for nutritional disorder Comprehensive Met. Panel Today L65.9 - Nonscarring hair loss, unspecified, Z00.00 - Encounter for general adult medical examination without abnormal findings AMB HCG Urine Test Today N89.8 - Other specified noninflammatory disorders of vagina Referrals Allergy & Immunology Referral L50.9 - Urticaria, unspecified FINISH GRINDER Referral Z12.4 - Encounter for screening for malignant neoplasm of cervix Medications: New norethindrone-e.estradiol-iron 1 mg-20 mcg (21)/75 mg (7) (02/27 (28)) 1 tab PO DAILY 84 tabs 0RF
[2024-12-15 15:37] VITALS: BP 100/88; PULSE 73; TEMP 36.3; O2SAT 99; BMI 25.9
--- OUTSIDE RECORDS SUMMARY | 2024-12-15 16:33 | XMS_ITS | Encounter Summary ---
Author Organization [facility] Address [address] [place] [id number] Phone Care Team Providers Care City Dispatcher Name Role Phone Randi Solorio MD Primary Care Prov ider Encounter Details Date Type Department Care Team ([facility] st Contact Info) Description 04/08/2017 Conversion Encounter [facility] [address] [phone] Randi Valle MD [address] [address] Social History Tobacco Use Types Packs/Day Years Used Date Smoking Tobacco: Never Comments:Never Comments Unknown Sex and Gender Information Value Date Recorded Sex Assigned at Not on file Legal Sex Female 12:18 PM EST Gender Identity Not on file Sexual Orientation Not on file documented as of this encounter Plan of Treatment Not on file documented as of this encounter Visit Diagnoses Not on filedocumented in this encounter Care Teams City Dispatcher Relationship Specialty Start Date End Date Randi Solorio MD [address] [address] PCP - General 10/23/16 01/14/23 documented as of this encounter
--- OUTSIDE RECORDS SUMMARY | 2024-12-15 16:33 | XMS_ITS | Clinical Summary ---
Author Organization [facility] Address [address] [place] [phone] Phone Care Team Providers Care Communications Tower Technician Name Role Phone Unavailable Primary Care Provider Unavailabl e Allergies No known active allergies Medications norethindrone-et hinyl estradiol (02/27) 1-20 MG-MCG per tablet 02/27 (28) 1 mg-20 mcg (21)/75 mg (7) tablet Active norethindrone-et hinyl estradiol (02/27) 1-20 MG-MCG per tablet 02/27 (28) 1 mg-20 mcg (21)/75 mg (7) tablet TAKE 1 TABLET BY MOUTH EVERY DAY WITH A MEAL Active Active Problems Problem Noted Date Diagnosed Date Vitamin D deficiency 10/24/2017 Wears glasses 10/24/2017 Polycystic ovaries 10/20/2017 Assessment & Plan (09/23/2018 1:14 PM EDT): ON OC with very regular periods Obesity 10/20/2017 Assessment & Plan (09/23/2018 1:15 PM EDT): Lab work which was not done last year will be done today, healthy life style was discussed at length Resolved Problems Problem Noted Date Diagnosed Date Resolved Date Large breasts 10/24/2017 09/23/2018 Overview (10/24/2017): RX: reduction mammaplasty for secondary back pain unresponsive to PT. Immunizations Immunization Administration Dates Next Due DTaP 08/30/2002, 0,01/20/1999,11/25,1998 HPV, Quadrivalent 12/10/2008,01/30/2008,12/01/19 08 Hep A, ped/adol 10/03/2015,10/02/2014 Hep B, ped/adol 04/28/1999,1998,1998 Hib (PRP-T) 10/24/1999,01/20/1999,1998 IPV 08/30/2002, 0,1998,09/23 Influenza, injectable, quadr ivalent, preservative free 12/12/2012 Influenza, injectable, trivalent 12/01/2007 Influenza, intranasal, trivalent 12/10/2008 MMR 08/30/2002,10/24/1999 Meningococcal B Trumenba 10/20/2017 Meningococcal Conj (Menactra) MCV4P 10/02/2014,0 07/01/2010 PPD Test 11/10/2017, 8,09/30/2016,09/09 Pneumococcal Conjugate 01/27/2000,10/24/1999 Tdap 07/01/2010 Varicella 07/01/2010,07/25/1999 Family History Medical History Relation Name Comments Eczema Maternal Grandfather Hypertension Maternal Grandfather Eczema Maternal Grandmother Relation Name Status Comments Maternal Grandfather Hyperte nsive disorder Maternal Grandmother Diabete s mellitus Paternal Grandmother Diabete s mellitus Social History Tobacco Use Types Packs/Day Years Used Date Smoking Tobacco: Never Smokeless Tobacco: Never Comments:Never Alcohol Use Standard Drinks/Week Comments No 0 (1 standard drink = 0.6 oz pur e alcohol) Hunger/Food Answer Date Recorded No 11/04/2019 Stable Housing Answer Date Recorded No 11/04/2019 Transportation Concerns Answer Date Rec orded No 11/04/2019 Hazards in Home Answer Date Recorded No 12/24/2019 Financing Utilities Answer Date Recorde d No 12/24/2019 Safety at Home Answer Date Recorded No 12/24/2019 Outside Support Answer Date Recorded No 12/24/2019 Understanding Health Concerns Answer Da te Recorded No 12/24/2019 Financing Health Concerns Answer Date R ecorded No 12/24/2019 Missing School or Work Answer Date Joe rded No 12/24/2019 Comments No Sex and Gender Information Value Date Recorded Sex Assigned at Not on file Legal Sex Female 12:18 PM EST Gender Identity Not on file Sexual Orientation Not on file Last Filed Vital Signs Vital Sign Reading Time Taken Comments Blood Pressure 115/74 09/23/2018 11:17 AM EDT Pulse 68 09/23/2018 11:17 AM EDT Temperature 37.1 C (98.7 F) 09/23/2018 11:17 AM EDT Respiratory Rate - - Oxygen Saturation - - Inhaled Oxygen Concentration - - Weight 86.6 kg (191 lb) 09/23/2018 11:17 AM EDT Height 160.7 cm (5' 3.25 ) 09/23/2018 11:17 AM E DT Body Mass Index 33.57 09/23/2018 11:17 AM EDT Plan of Treatment Health Maintenance Due Date Last Done Comments Men B Vaccine (2 of 2 - Trum enba SCDM 2-dose series) 04/19/2018 10/20/2017 DTaP,Tdap,and Td Vaccines (7 - Td or Tdap) 07/01/2020 07/01/2010, 08/30/2002, 01/27/2000, Additional history exists Influenza Vaccines (#1) 2024 12/13/19 13, 12/10/2008, 12/01/2007 COVID-19 Vaccine (2 - 2024-2 6 season) 2024 05/19/2020 Hepatitis B Vaccines Completed 04/28/1999, 1998, 1998 HIB Vaccines Completed 10/24/1999, 01/08, 1998 Pneumococcal Vaccine Completed 01/27/2000, 10/24/19 00 IPV Vaccines Completed 08/30/2002, 01/08, 1998, Additional history exists MMR Vaccines Completed 08/30/2002, 10/24/1999 HPV Vaccines Completed 12/10/2008, 01/09, 12/01/2007 Varicella Vaccines Completed 07/01/2010, 07/25/1999 Meningococcal Vaccine Completed 10/02/2014, 011 Hepatitis A Vaccines Completed 10/03/2015, 10/03/19 15 Procedures * Due to [place] state law, this organization might not be sharing sensitive test results. Procedure Name Priority Date/Time Associated Diagnosis Comments CHLAMYDIA TRACHOMATIS, AMPLIFIED Routine 09/23/2018 11:27 AM EDT Encounter for screening examination for sexually transmitted disease from Last 3 Months or Most Recently Relevant to Health Maintenance Results * Due to [place] state law, this organization might not be sharing sensitive test results. * Chlamydia trachomatis, Amplified (09/23/2018 11:27 AM EDT) CHLAMYDIA, DNA PROBE NEGATIVE NEGATIVE [facility] Urine (Urine) 09/23/2018 11: 27 AM EDT 09/23/2018 3:16 PM EDT Narrative [facility] - 09/25/2018 9:54 AM EDT PT ID [id number] - [employer], a member of [address] [address] Automotive Electrician Helper - Makenzie Pelaez MD us Patricia Browning MD LAB MICROBIOLOGY - GENERAL ORDERABLES Final Result [facility] from Last 3 Months or Most Recently Relevant to Health Maintenance
== END 2024-12-15 16:41 | disposition home or self-care (01) ==
LOC: HO.HMCH 15:22
DX: Z00.00 Encounter for general adult medical examination without abnormal findings (principal); E66.9 Obesity, unspecified; Z68.25 Body mass index [BMI] 25.0-25.9, adult; N89.8 Other specified noninflammatory disorders of vagina; L50.9 Urticaria, unspecified; Z30.09 Encounter for other general counseling and advice on contraception

== ENCOUNTER 2024-12-15 15:21 | Outpatient (REF) | payer OTHER, SELFPAY ==
[2024-12-15 20:42] LABS: Bacterial Vaginosis PCR POSITIVE (Negative); Trichomonas vaginalis PCR NOT DETECTED (Not Detect)
[2024-12-15 20:43] LABS: Candida Group PCR DETECTED (Not Detect); Candida glab krusei PCR NOT DETECTED (Not Detect)
[2024-12-15 21:52] LABS: CT PCR NOT DETECTED (Not Detect.); NG PCR NOT DETECTED (Not Detect.)
== END 2024-12-15 15:22 | disposition home or self-care (01) ==
LOC: HO.LNP 15:21
DX: Z00.00 Encounter for general adult medical examination without abnormal findings (principal); Z30.09 Encounter for other general counseling and advice on contraception; N89.8 Other specified noninflammatory disorders of vagina; E66.9 Obesity, unspecified; L50.9 Urticaria, unspecified; Z79.899 Other long term (current) drug therapy; Z68.25 Body mass index [BMI] 25.0-25.9, adult
CPT/HCPCS: 81515; 87491; 87591; 99395

== ENCOUNTER 2024-12-28 17:33 | Outpatient (REF) | payer OTHER, SELFPAY ==
--- OUTSIDE RECORDS SUMMARY | 2024-12-28 21:01 | XMS_ITS | Encounter Summary ---
Author Organization [facility] Address [address] [place] [phone] Phone Care Team Providers Care Trademark Affixer Name Role Phone Randi Solorio MD Primary Care Prov ider Encounter Details Date Type Department Care Team ([facility] st Contact Info) Description 04/08/2017 Conversion Encounter [facility] [address] [phone] Randi Valle MD [address] [phone] Social History Tobacco Use Types Packs/Day Years [...] on filedocumented in this encounter Care Teams Trademark Affixer Relationship Specialty Start Date End Date Randi Solorio MD [address] [address] PCP - General 10/23/16 01/14/23 documented as of this encounter
--- OUTSIDE RECORDS SUMMARY | 2024-12-28 21:01 | XMS_ITS | Clinical Summary ---
Author Organization [facility] Address [address] [place] [phone] Phone Care Team Providers Care Torch Burner Name Role Phone Unavailable Primary Care Provider [...] 10/03/2015, 10/03/19 15 Procedures * Due to [place] state law, this organization might not be sharing sensitive test results. Procedure Name Priority Date/Time Associated Diagnosis Comments CHLAMYDIA TRACHOMATIS, AMPLIFIED Routine 09/23/2018 11:27 AM EDT Encounter for screening examination for sexually transmitted disease from Last 3 Months or Most Recently Relevant to Health Maintenance Results * Due to [place] state law, this organization might not be sharing sensitive test results. * Chlamydia trachomatis, Amplified (09/23/2018 11:27 AM EDT) CHLAMYDIA, DNA PROBE NEGATIVE NEGATIVE [facility] Urine (Urine) 09/23/2018 11: 27 AM EDT 09/23/2018 3:16 PM EDT Narrative [facility] - 09/25/2018 9:54 AM EDT PT ID [id number] - Adhyster[employer], a member of [address] [address] Payer Specialist - Makenzie Pelaez MD us Patricia Browning MD LAB MICROBIOLOGY - GENERAL ORDERABLES Final Result [facility] from Last 3 Months or Most Recently Relevant to Health Maintenance
== END 2024-12-28 17:34 | disposition home or self-care (01) ==
LOC: HO.LAB 17:33
DX: Z13.89 Encounter for screening for other disorder (principal)